=== PATIENT | male | born 1980 | race Caucasian/White ===

== ENCOUNTER 2019-09-12 | Emergency (ER) | payer OTHER ==
[2019-09-12] MEDS ORDERED: Ondansetron 4 MG/2 ML SDV IV ONE (00:14)
[2019-09-12] MEDS ORDERED: Ketorolac 30 MG/ML SDV IVPUSH ONE (00:14)
[2019-09-12] MEDS ORDERED: Sodium Chloride 0.9% 10 ML Syringe FLUSH PRN (00:14)
[2019-09-12] MEDS ORDERED: Lactated Ringers 1,000 ML IV ONE (00:14)
--- NOTE | 2019-09-12 00:20 | EDM.PDOC ---
ED HPI GENERAL MEDICAL PROBLEM - General Chief Complaint: Abdominal Pain Stated Complaint: Upper abdominal pain Time Seen by Provider: 09/12/19 00:15 Source of Information: Reports: Patient History Limitations: Reports: No Limitations - History of Present Illness INITIAL COMMENTS - FREE TEXT/NARRATIVE: Patient comes emergency department today with complaints of epigastric right upper quadrant pain. This patient who had fried chicken earlier tonight suddenly developed epigastric and right upper quadrant pain about 9:00 tonight. The pain is a constant spasm in the right upper quadrant to the point that he cannot sit still. He really is not nauseous but he tried to make himself throw up or vomit in an attempt to make his pain better. He was unable to vomit. The pain is in the right upper quadrant it does not radiate anywhere. It does not go into his back. He has had no hematuria dysuria or urinary frequency. No diarrhea or constipation. No chest pain shortness of breath or difficulty breathing. No fever no chills. - Related Data Allergies Allergy/AdvReac Type Severity Reaction Status Date / Time No Known Allergies Allergy Verified 09/12/19 00:50 Home Meds: Home Meds . [No Known Home Meds] 09/12/19 [History] ED ROS GENERAL - Review of Systems Review Of Systems: Comprehensive ROS is negative, except as noted in HPI. ED EXAM, GI/ABD - Physical Exam Exam: See Below Text/Narrative:: He is pacing around the room and appears quite uncomfortable. Exam Limited By: No Limitations General Appearance: Alert, WD/WN, Moderate Distress Throat/Mouth: Normal Inspection Head: Atraumatic, Normocephalic Neck: Normal Inspection, Supple Respiratory/Chest: No Respiratory Distress Cardiovascular: Normal Peripheral Pulses GI/Abdominal Exam: Normal Bowel Sounds, Soft, Guarding (RUQ with a positive murphys sign), Tender. No: Distended, Rigid, Hernia (Male) Exam: Deferred Rectal (Males) Exam: Deferred Back Exam: Normal Inspection, Full Range of Motion. No: CVA Tenderness (L), CVA Tenderness (R) Extremities: Normal Inspection, Normal Range of Motion, No Pedal Edema Neurological: Alert, Oriented, Normal Cognition, No Motor/Sensory Deficits Psychiatric: Normal Affect, Normal Mood Skin Exam: Warm, Dry, Intact, Normal Color, No Rash Course - Orders/Labs/Meds Orders: Active Orders 24 hr Category Date Time Status UA RFX WOLF AND CULT IF INDIC [URIN] Stat Lab 09/12/19 00:13 Ordered Sodium Chloride 0.9% [Saline Flush] Med 09/12/19 00:14 Active 10 ml FLUSH ASDIRECTED PRN Peripheral IV Insertion Adult [OM.PC] Stat Oth 09/12/19 00:13 Ordered Medication Orders Sodium Chloride (Saline Flush) 10 ml FLUSH ASDIRECTED PRN PRN Reason: Keep Vein Open Labs: Laboratory Tests 09/12/19 09/12/19 09/12/19 Range/Units 00:30 00:30 00:43 WBC 7.9 (4.0-10.0) x10^3/uL RBC 4.61 (4.5-6.0) x10^6/uL Hgb 14.4 (14.0-18.0) g/dL Hct 39.7 L (40.0-52.0) % MCV 86.1 (78.0-93.0) fL MCH 31.2 (26.0-32.0) pg MCHC 36.3 H (32.0-36.0) g/dL RDW Coeff of Karla 13.5 (10.0-15.0) % Plt Count 151 (130-400) x10^3/uL Neut % (Auto) 56.7 (50.0-80.0) % Lymph % (Auto) 29.5 (25.0-50.0) % [place] % (Auto) 10.7 (2.0-11.0) % Eos % (Auto) 2.8 (0.0-4.0) % Baso % (Auto) 0.3 (0.2-1.2) % Sodium 144 (136-145) mmol/L Potassium 3.5 (3.5-5.1) mmol/L Chloride 105 (98-107) mmol/L Carbon Dioxide 29 (21-32) mmol/L Anion Gap 13.5 (10-20) mmol/L BUN 20 H (7-18) mg/dL Creatinine 1.0 (0.70-1.30) mg/dL Est Cr Clr Drug Dosing TNP Estimated GFR (MDRD) > 60 Glucose 102 (74-106) mg/dL Lactic Acid 1.2 (0.4-2.0) mmol/L Calcium 8.5 (8.5-10.1) mg/dL Corrected Calcium 8.58 (8.5-10.1) mg/dL Total Bilirubin 0.5 (0.2-1.0) mg/dL AST 41 H (15-37) U/L ALT 70 H (16-63) U/L Alkaline Phosphatase 73 (46-116) U/L C-Reactive Protein < 0.2 (<=0.9) mg/dL Total Protein 7.6 (6.4-8.2) g/dL Albumin 3.9 (3.4-5.0) g/dL Globulin 3.7 Albumin/Globulin Ratio 1.05 Lipase 147 (73-393) U/L Meds: Medications Generic Name Dose Route Start Last Admin Trade Name Freq PRN Reason Stop Dose Admin Sodium Chloride 10 ml 09/12/19 00:14 Saline Flush FLUSH ASDIRECTED PRN Keep Vein Open Discontinued Medications Generic Name Dose Route Start Last Admin Trade Name Freq PRN Reason Stop Dose Admin Hydromorphone HCl 1 mg 09/12/19 00:31 09/12/19 00:41 Dilaudid IVPUSH 09/12/19 00:32 1 mg ONETIME ONE Administration Lactated Ringer's 1,000 mls @ 999 mls/hr 09/12/19 00:14 09/12/19 00:30 Ringers, Lactated IV 09/12/19 01:14 999 mls/hr ONETIME ONE Administration Ketorolac Tromethamine 30 mg 09/12/19 00:14 09/12/19 00:31 Toradol IVPUSH 09/12/19 00:15 30 mg ONETIME ONE Administration Ondansetron HCl 4 mg 09/12/19 00:14 09/12/19 00:33 Zofran IV 09/12/19 00:15 4 mg ONETIME ONE Administration - Re-Assessments/Exams Free Text/Narrative Re-Assessment/Exam: 09/12/19 01:55 The patient was given Ondansetron and Ketorolac with no change in the symptoms. Dilaudid 1mg IVP with complete resolution of the patients severe pain. He felt much better following the Dilaudid. HIs labs nrml WBC and CRP. AST and ALT minimally elevated with a normal T Bili and LIpase. Re-examination of the patient abd shows a soft none tender none distended abd. This is really the presentation of biliary colic pain and with the normal WBC CRP T Bili and lipase obstruction is really unlikely and with his pain resolution. I would like to set him up for a GB US for the morning. THe patient is from [place] and on the road. He would prefer to have this test done when he return home tomorrow to [place]. Since he is pain free and feeling much better and no laboratory signs of obstruction of the GB we will discharge him home with [place] for pain and a gallbladder diet with close follow up with PCP in [place] on the patients decision and denial for a US tomorrow. The patient is comfortable with this plan and his questions answered. Departure - Departure Time of Disposition: 01:40 Disposition: Home, Self-Care 01 Clinical Impression: RUQ pain - Discharge Information Instructions: Biliary Colic, Adult, Gallbladder Eating Plan Forms: ED Department Discharge Additional Instructions: Push fluids over the next few days. Low fat diet, nothing rich fatty. Tylenol and or Ibuprofen as needed for pain. If pain not controlled with above. [place] 1 tablet every 4-6 hrs as needed for pain. Caution sedation. Starter pack from the ED and RX given to the patient. Follow up with PCP when you return to [place] for gallbladder Ultrasound. Return to the ED if new or worsening symptoms Follow up with PCP JACINTO when you return home to [place]. Sepsis Event Note - Focused Exam Date Exam was Performed: 09/12/19 Time Exam was Performed: 01:40 - My Orders Last 24 Hours: My Active Orders 09/12/19 00:13 UA RFX WOLF AND CULT IF INDIC [URIN] Stat Peripheral IV Insertion Adult [OM.PC] Stat 09/12/19 00:14 Sodium Chloride 0.9% [Saline Flush] 10 ml FLUSH ASDIRECTED PRN - Assessment/Plan Last 24 Hours: My Active Orders 09/12/19 00:13 UA RFX WOLF AND CULT IF INDIC [URIN] Stat Peripheral IV Insertion Adult [OM.PC] Stat 09/12/19 00:14 Sodium Chloride 0.9% [Saline Flush] 10 ml FLUSH ASDIRECTED PRN Assessment:: RUQ, ? biliary colic. Plan: Push fluids over the next few days. Low fat diet, nothing rich fatty. Tylenol and or Ibuprofen as needed for pain. If pain not controlled with above. [place] 1 tablet every 4-6 hrs as needed for pain. Caution sedation. Starter pack from the ED and RX given to the patient. Follow up with PCP when you return to [place] for gallbladder Ultrasound. Return to the ED if new or worsening symptoms Follow up with PCP JACINTO when you return home to [place].
[2019-09-12] MEDS ORDERED: HYDROmorphone 1 MG/ML Syringe IVPUSH ONE (00:31)
[2019-09-12 01:10] LABS: CHLORIDE,CL 105 mmol/L (98-107); SODIUM,NA 144 mmol/L (136-145)
[2019-09-12 01:11] LABS: ANION GAP 13.5 mmol/L (10-20)
[2019-09-12] MEDS ORDERED: Take Home: Acetaminophen/HYDROcodone 325-5 MG, 5 Tab Pack PO ONE (01:52)
== END 2019-09-12 02:09 | disposition home or self-care (01) ==
LOC: VM.ED
DX: R10.11 Right upper quadrant pain (principal)
CPT/HCPCS: 36415; 80053; 83605; 83690; 85025; 86140; 96361; 96374; 96375; 99284-25; A9270-GY; J1170; J1885; J2405; J7120